=== PATIENT | male | born 1985 | race Caucasian/White ===

== ENCOUNTER 2021-03-01 22:01 | Inpatient (IN) | payer SELFPAY ==
[2021-03-01] MEDS ORDERED: ONDANSETRON 4 MG/2 ML VIAL ONE (22:31)
[2021-03-01] MEDS ORDERED: NA CHLORIDE 0.9% 1,000 ML ONE (22:55)
[2021-03-01] MEDS ORDERED: LORazepam 2 MG/ML VIAL ONE (22:56)
[2021-03-01 23:20] LABS: Absolute Lymphocytes (CBC) 0.1 K/uL (0.7-4.9); Basophils % 0.2 % (0-1.3); Hematocrit 43.1 % (39.6-49.0); Lymphocytes % 1.8 % (15.3-44.8); MPV 7.3 fL (7.6-11.3); RBC Red Blood Cell Count 4.35 M/uL (4.33-5.43)
[2021-03-01 23:21] LABS: Protime INR 1.11
[2021-03-01 23:28] LABS: ALT/SGPT 103 U/L (12-78); Albumin 4.1 g/dL (3.4-5.0); Alkaline Phosphatase 244 U/L (45-117); BUN Blood Urea Nitrogen 5 mg/dL (7-18); Bicarbonate 25 mmol/L (21-32); Bilirubin Direct 4.4 mg/dL (0-0.2); Creatine Phosphokinase 87 U/L (39-308); Glucose Level 171 mg/dL (74-106); Lipase 144 U/L (73-393); Potassium 3.8 mmol/L (3.5-5.1); Protein, Total 8.2 g/dL (6.4-8.2); Sodium Level 137 mmol/L (136-145); Troponin (Emerg Dept Use Only) < 0.02 ng/mL (0.0-0.045)
[2021-03-01 23:31] LABS: AST/SGOT 462 U/L (15-37); Bilirubin Total 6.4 mg/dL (0.2-1.0)
[2021-03-02 00:20] LABS: Urine Blood Negative (Negative); Urine Glucose Negative (Negative); Urine Protein 2+ (Negative); Urine Specific Gravity 1.025 (1.005-1.030)
[2021-03-02 00:48] LABS: Barbiturates NEGATIVE (NEGATIVE); Benzodiazepines POSITIVE (NEGATIVE); Cocaine NEGATIVE (NEGATIVE); METHAMPHETAM NEGATIVE (NEGATIVE); Methadone NEGATIVE (NEGATIVE); Opiates NEGATIVE (NEGATIVE); Phencyclidine NEGATIVE (NEGATIVE); THC Cannibis NEGATIVE (NEGATIVE)
--- NOTE | 2021-03-02 00:51 | EDPHYS ---
Physician Documentation [facility] Name: Jonathan Vick Age: 35 yrs Sex: Male : 1985 Arrival Date: 03/01/2021 Time: 22:03 Bed 28 Private MD: ED Physician Sesar Manzano HPI: 03/01 22:34 This 35 yrs old Male presents to ER via EMS with complaints of Seizure. mh7 22:34 The patient presents after having a single isolated seizure, that lasted 4 minute(s). mh7 Character of seizure(s): Loss of consciousness: it is not known if the patient experienced loss of consciousness, Motor activity: the motor activity is unknown, Incontinence: none, Apnea: the patient did not experience apnea, Circulation: the patient did not experience evidence of pulse disturbance, Eye movements: are unknown. Seizure onset: just prior to arrival, today. Context: the seizure(s) was witnessed, by family, , occurred at home, occurred while the patient was sitting, Contributing factors: recent alcohol abuse. Seizure Hx: the patient has no previous seizure history. Associated injury: The patient did not suffer any apparent associated injury. Current symptoms: Nausea, feels shaky. Historical: - Allergies: 22:00 Sulfa (Sulfonamide Antibiotics); cc4 - Immunization history:: Unknown. - Social history:: Patient/guardian denies using street drugs, IV drugs, tobacco products, Reports drinking alcohol since the age of 16; reports boing to "rehab" x 2 for alcohol use.. - Code Status:: Full code. ROS: 22:34 Constitutional: Negative for fever, chills, and weight loss, Eyes: Negative for injury, mh7 pain, redness, and discharge, ENT: Negative for injury, pain, and discharge, Neck: Negative for injury, pain, and swelling, Cardiovascular: Negative for chest pain, palpitations, and edema, Respiratory: Negative for shortness of breath, cough, wheezing, and pleuritic chest pain. 22:34 Back: Negative for injury and pain, : Negative for injury, bleeding, discharge, and swelling, MS/Extremity: Negative for injury and deformity, Skin: Negative for injury, rash, and discoloration. 22:34 Psych: Negative for depression, anxiety, suicide ideation, homicidal ideation, and hallucinations, Allergy/Immunology: Negative for hives, rash, and allergies, Endocrine: Negative for neck swelling, polydipsia, polyuria, polyphagia, and marked weight changes, Hematologic/Lymphatic: Negative for swollen nodes, abnormal bleeding, and unusual bruising. 22:34 Abdomen/GI: Negative for abdominal pain, diarrhea, constipation, abdominal cramps, abdominal distension, anorexia, dysphagia, hematemesis, black/tarry stool, rectal pain, rectal bleeding, bowel incontinence, flatulence. 22:34 Neuro: Negative for dizziness, gait disturbance, headache, hearing loss, loss of consciousness, numbness, speech changes, syncope, near syncope, tingling, tinnitus, tremor, visual changes, weakness. Exam: 22:34 ENT: Nares patent. No nasal discharge, no septal abnormalities noted. Tympanic mh7 membranes are normal and external auditory canals are clear. Oropharynx with no redness, swelling, or masses, exudates, or evidence of obstruction, uvula midline. Mucous membranes moist. Neck: Trachea midline, no thyromegaly or masses palpated, and no cervical lymphadenopathy. Supple, full range of motion without nuchal rigidity, or vertebral point tenderness. No Meningismus. Chest/axilla: Normal chest wall appearance and motion. Nontender with no deformity. No lesions are appreciated. Cardiovascular: Regular rate and rhythm with a normal S1 and S2. No gallops, murmurs, or rubs. Normal PMI, no JVD. No pulse deficits. Respiratory: Lungs have equal breath sounds bilaterally, clear to auscultation and percussion. No rales, rhonchi or wheezes noted. No increased work of breathing, no retractions or nasal flaring. Abdomen/GI: Soft, non-tender, with normal bowel sounds. No distension or tympany. No guarding or rebound. No evidence of tenderness throughout. Back: No spinal tenderness. No costovertebral tenderness. Full range of motion. Skin: Warm, dry with normal turgor. Normal color with no rashes, no lesions, and no evidence of cellulitis. MS/ Extremity: Pulses equal, no cyanosis. Neurovascular intact. Full, normal range of motion. Psych: Awake, alert, with orientation to person, place and time. Behavior, mood, and affect are within normal limits. 22:34 Constitutional: The patient appears in no acute distress, alert, awake, uncomfortable. 22:34 Head/face: Noted is abrasion(s), that are moderate, of the Right facial, contusion, that is superficial, of the Right face, ecchymosis, that is mild, of the right eye, swelling, that is mild, of the right eye. 22:34 Eyes: Periorbital structures: contusion, that is mild, on the right eye, ecchymosis, mh7 that is mild, on the right eye, Pupils: equal, round, and reactive to light and accomodation, Extraocular movements: intact throughout, Conjunctiva: injected, bilaterally, Corneas: are normal, Sclera: no appreciated abnormality, funduscopic exam reveals no obvious abnormalities, Nystagmus: is not appreciated. 22:34 Neuro: Orientation: to person, place, situation, Mentation: is normal, Memory: is mh7 normal, Cranial nerves: grossly normal, Cerebellar function: is grossly normal, Motor: is normal, Sensation: is normal, Gait: not tested. seizure activity, is not displayed by the patient, Abnormal movements: there are no abnormal movements. Vital Signs: 22:00 BP 155 / 116; Pulse 93; Resp 24; Temp 98.2; Pulse Ox 100% on R/A; cc4 23:00 BP 148 / 102; Pulse 84; Resp 18; Pulse Ox 99% on R/A; cc4 23:00 BP 138 / 107; Pulse 81; Resp 16; Pulse Ox 100% on R/A; cc4 23:15 BP 139 / 102; Pulse 90; Resp 16; Pulse Ox 96% on R/A; cc4 03/02 00:05 BP 126 / 97; Pulse 88; Resp 18; Pulse Ox 99% on R/A; cc4 00:30 BP 133 / 96; Pulse 92; Resp 16; Pulse Ox 99% on R/A; cc4 01:00 BP 133 / 94; Pulse 99; Resp 16; Pulse Ox 98% ; cc4 01:30 BP 130 / 96; Pulse 96; Resp 16; Pulse Ox 96% on R/A; cc4 02:00 BP 135 / 93; Pulse 103; Resp 16; Pulse Ox 98% on R/A; cc4 02:15 BP 132 / 95; Pulse 100; Resp 16; Temp 100.3(O); Pulse Ox 96% on R/A; cc4 MDM: 00:48 Differential diagnosis: drug overdose, cardiac arrhythmia, seizure, TIA, Alcohol [facility] withdrawal. Data reviewed: vital signs, nurses notes, EMS record, lab test result(s), CBC, electrolytes, urinalysis, EKG, radiologic studies, CT scan, plain films. Data interpreted: Pulse oximetry: on room air is 100 %. Interpretation: normal. Counseling: I had a detailed discussion with the patient and/or guardian regarding: the historical points, exam findings, and any diagnostic results supporting the discharge/admit diagnosis, the presence of at least one elevated blood pressure reading (>120/80) during this emergency department visit, lab results, radiology results, the need for further work-up and treatment in the hospital. Response to treatment: the patient's symptoms have markedly improved after treatment. 00:50 Patient medically screened. [facility] 03/01 22:26 Order name: Acetaminophen [facility] 03/01 22:26 Order name: Basic Metabolic Panel [facility] 03/01 22:26 Order name: CBC with Diff; Complete Time: 23:26 [facility] 03/01 22:26 Order name: ETOH Level; Complete Time: 23:36 [facility] 03/01 22:26 Order name: Hepatic Function; Complete Time: 23:36 [facility] 03/01 22:26 Order name: PT-INR; Complete Time: 23:36 [facility] 03/01 22:26 Order name: Ptt, Activated; Complete Time: 23:36 [facility] 03/01 22:26 Order name: Salicylate; Complete Time: 23:36 [facility] 03/01 22:26 Order name: Urine Drug Screen; Complete Time: 01:52 [facility] 03/01 22:26 Order name: Troponin (emerg Dept Use Only); Complete Time: 23:36 [facility] 03/01 22:26 Order name: CPK; Complete Time: 23:36 [facility] 03/01 22:27 Order name: Lipase; Complete Time: 23:36 [facility] 03/01 22:27 Order name: Acetaminophen Level; Complete Time: 23:36 [facility] 03/01 22:27 Order name: Basic Metabolic Panel; Complete Time: 23:36 [facility] 03/01 22:26 Order name: CT Head C Spine [facility] 03/01 22:26 Order name: CT Facial Bones W/O Con [facility] 03/01 22:30 Order name: COVID-19 : Document "Date of Symptom Onset" if Symptomatic. [facility] 03/02 00:20 Order name: Urine Dipstick-Ancillary; Complete Time: 01:52 [facility] 03/02 01:24 Order name: SARS-COV-2 RT PCR; Complete Time: 01:52 [facility] 03/02 05:10 Order name: Phosphorus [facility] 03/02 05:10 Order name: Lipid Profile [facility] 03/02 05:10 Order name: T4 Free [facility] 03/02 05:10 Order name: Magnesium [facility] 03/02 05:10 Order name: Thyroid Stimulating Hormone [facility] 03/03 05:16 Order name: Protime (+INR) [facility] 03/03 05:16 Order name: CBC with Automated Diff [facility] 03/03 05:39 Order name: Comprehensive Metabolic Panel [facility] 03/03 05:39 Order name: Phosphorus [facility] 03/03 05:39 Order name: Magnesium [facility] 03/01 22:26 Order name: EKG; Complete Time: 22:27 [facility] 03/01 22:26 Order name: EKG - Nurse/Tech; Complete Time: 22:56 [facility] 03/01 22:26 Order name: IV Saline Lock; Complete Time: 23:40 [facility] 03/01 22:26 Order name: Labs collected and sent; Complete Time: 23:40 [facility] 03/01 22:26 Order name: Suicide Screening ([place]) [facility] 03/01 22:26 Order name: Urine Dipstick-Ancillary (obtain specimen); Complete Time: 00:22 [facility] 03/01 22:26 Order name: Chest Single View XRAY [facility] 03/01 23:37 Order name: CT Abd/Pelvis - IV Contrast Only [facility] 03/02 01:45 Order name: Misc. Order: banana bag rate at 150cc/hr; Complete Time: 02:24 [facility] 03/02 08:27 Order name: US EDMS Administered Medications: 03/01 22:10 Drug: Zofran (Ondansetron) 4 mg Route: IVP; Site: right antecubital; cc4 03/02 01:53 Follow up: Urine output 2330 ml; Response: No adverse reaction; Marked relief of cc4 symptoms 03/01 22:51 Drug: NS 0.9% 1000 ml Route: IV; Rate: 1000 ml; Site: right antecubital; cc4 22:51 Drug: Ativan (LORazepam) 2 mg Route: IVP; Site: right antecubital; cc4 23:30 Follow up: Response: No adverse reaction; Marked relief of symptoms 4 03/02 01:40 Drug: Ativan (LORazepam) 2 mg Route: IVP; Site: right antecubital; cc4 02:23 Drug: Librium - chlordiazePOXIDE 50 mg Route: PO; cc4 02:23 Drug: Banana Bag - (NS 0.9% 1000 ml, foLIC Acid 1 mg, Thiamine 100 mg, Multivitamin 1 cc4 amp) Route: IV; Rate: calculated rate; Site: right antecubital; Disposition Summary: 03/02/21 00:50 Hospitalization Ordered Hospitalization Status: Inpatient Admission [facility] Provider: Gerson Schneider Dee Condition: Stable [facility] Problem: new [facility] Symptoms: have improved 7 Bed/Room Type: Standard [facility] Location: [facility] ER HOLD(03/02/21 16:06) aa5 Room Assignment: ERHOLD-(03/02/21 16:06) aa5 Diagnosis - Alcohol dependence with withdrawal [facility] Forms: - Medication Reconciliation Form 7 - SBAR form 7 Signatures: Dispatcher [employer] EDGA Alison Hartley RN RN aa5 Drew Stanton, HIDE SALTER-C HIDE SALTER-Cla1 Sesar Manzano MD MD 7 Phuong Smith RN RN cc4 Corrections: (The following items were deleted from the chart) 00:33 03/01 22:30 CORONAVIRUS ordered. [facility] SATHYAGA 03/02 00:59 00:50 Telemetry/MedSurg (Inpatient) 7 7 00:59 00:50 7 7 16:06 00:59 Intensive Care Unit 7 aa5 16:06 00:59 [facility] aa5
--- NOTE | 2021-03-02 00:51 | ER ---
Nurse's Notes [facility] Name: Jonathan Vick Age: 35 yrs Sex: Male : 1985 Arrival Date: 03/01/2021 Time: 22:03 Bed 28 Private MD: Diagnosis: Alcohol dependence with withdrawal Presentation: 03/01 22:18 Chief complaint: EMS states: [employer] reports stated that pt had a seizure cc4 lasting 4 minutes from alcohol withdrawal; reports pt drinks a liter of Barcardia per day and has had only a pint today; large hematoma/ecchymosis and scabbed abrasion noted right forehead/ right lateral orbit of eye/eyelids of right eye with redness noted right sclera;. Onset of symptoms was March 01, 2021 at 21:15. 22:18 Method Of Arrival: EMS: [facility] cc4 22:18 Acuity: LUPIS 2 cc4 Triage Assessment: 22:00 General: Appears unkempt, Trembling intermittently; awake \\T\\ oriented to person; reports cc4 taking nap prior to arrival; no knowledge of seizure activity; large area of ecchymosis, edema \\T\\ scabbed abrasion noted right lateral forehead \\T\\ orbit of right eye \\T\\ eyelids; redness noted of sclera right eye; reports falling yesterday striking face \\T\\ reports not seeking medical attention yesterday after fall; reports trying to decrease alcohol intake; states, "I have a baby under the age of one and another on the way", "I want to decrease my drinking"; "I have been to rehab twice"; denies any suicidal ideations.. Behavior is flat, Smells of alcohol, Reports "I usually drink 1 liter of Bacardi rum a day", "I've only had about a pint today". Neuro: Level of Consciousness is awake, Oriented to person, Hosiery Mater are equal bilaterally Moves all extremities. Speech is normal, Pupils are PERRLA, Pupil Size: 4mm Seizure activity reported prior to arrival. Type of seizure: tonic-clonic seizure. Seizure lasted approximately 4 minutes. Historical: - Allergies: 22:00 Sulfa (Sulfonamide Antibiotics); cc4 - Immunization history:: Unknown. - Social history:: Patient/guardian denies using street drugs, IV drugs, tobacco products, Reports drinking alcohol since the age of 16; reports boing to "rehab" x 2 for alcohol use.. - Code Status:: Full code. Screenin:00 Abuse screen: Denies threats or abuse. Nutritional screening: No deficits noted. cc4 Tuberculosis screening: No symptoms or risk factors identified. Fall Risk Fall in past 12 months (25 points). Assessment: 22:00 General: Appears unkempt, See triage note.. cc4 03/02 00:00 Reassessment: Patient appears in no apparent distress at this time. Returned from CT cc4 via stretcher; awake/oriented to person; states, "I'm in the hospital"; no trembling noted; no seizure activity noted; states, "I need to sleep now".. 02:15 Reassessment: CHANO Stanton notified of elevated temp to 100.3 F orally with orders cc4 received to give Librium 50 mg po \\T\\ ativan 2mg ivp every 2 hours; CHANO Stanton reports "everything will increase". Vital Signs: 03/01 22:00 BP 155 / 116; Pulse 93; Resp 24; Temp 98.2; Pulse Ox 100% on R/A; cc4 23:00 BP 148 / 102; Pulse 84; Resp 18; Pulse Ox 99% on R/A; cc4 23:00 BP 138 / 107; Pulse 81; Resp 16; Pulse Ox 100% on R/A; cc4 23:15 BP 139 / 102; Pulse 90; Resp 16; Pulse Ox 96% on R/A; cc4 03/02 00:05 BP 126 / 97; Pulse 88; Resp 18; Pulse Ox 99% on R/A; cc4 00:30 BP 133 / 96; Pulse 92; Resp 16; Pulse Ox 99% on R/A; cc4 01:00 BP 133 / 94; Pulse 99; Resp 16; Pulse Ox 98% ; cc4 01:30 BP 130 / 96; Pulse 96; Resp 16; Pulse Ox 96% on R/A; cc4 02:00 BP 135 / 93; Pulse 103; Resp 16; Pulse Ox 98% on R/A; cc4 02:15 BP 132 / 95; Pulse 100; Resp 16; Temp 100.3(O); Pulse Ox 96% on R/A; cc4 ED Course: 03/01 22:03 Patient arrived in ED. tt3 22:16 hPuong Smith, SENDY is Primary Nurse. cc4 22:19 Sesar Manzano MD is Attending Physician. mh7 22:26 Triage completed. cc4 22:56 Chest Single View XRAY In Process Unspecified. EDMS 23:39 CT Abd/Pelvis - IV Contrast Only Sent. cc4 23:39 Acetaminophen Sent. cc4 23:40 Basic Metabolic Panel Sent. cc4 23:54 CT Head C Spine In Process Unspecified. EDMS 23:54 CT Facial Bones W/O Con In Process Unspecified. EDMS 10 00:06 CT Abd/Pelvis - IV Contrast Only In Process Unspecified. EDMS 00:14 COVID-19 : Document "Date of Symptom Onset" if Symptomatic. Sent. cc4 00:50 Gerson Schneider DO is Hospitalizing Provider. 7 Administered Medications: 03/01 22:10 Drug: Zofran (Ondansetron) 4 mg Route: IVP; Site: right antecubital; cc4 03/02 01:53 Follow up: Urine output 2330 ml; Response: No adverse reaction; Marked relief of cc4 symptoms 03/01 22:51 Drug: NS 0.9% 1000 ml Route: IV; Rate: 1000 ml; Site: right antecubital; cc4 22:51 Drug: Ativan (LORazepam) 2 mg Route: IVP; Site: right antecubital; cc4 23:30 Follow up: Response: No adverse reaction; Marked relief of symptoms cc4 03/02 01:40 Drug: Ativan (LORazepam) 2 mg Route: IVP; Site: right antecubital; cc4 02:23 Drug: Librium - chlordiazePOXIDE 50 mg Route: PO; cc4 02:23 Drug: Banana Bag - (NS 0.9% 1000 ml, foLIC Acid 1 mg, Thiamine 100 mg, Multivitamin 1 cc4 amp) Route: IV; Rate: calculated rate; Site: right antecubital; Output: 01:53 Urine: 2330ml; Total: 2330ml. cc4 Outcome: 00:50 Decision to Hospitalize by Provider. 7 03/03 10:42 Patient left the ED. iw Signatures: Dispatcher [employer] EDMS Amanda Toney RN Sesar Luke MD MD mh7 Gulshan Hopper tt3 Phuong Smith RN RN cc4 Corrections: (The following items were deleted from the chart) 03/02 00:33 00:22 CORONAVIRUS drawn and sent. cc4 EDMS 03:50 03:00 BP 135 / 93; Pulse 103bpm; Resp 18bpm; Pulse Ox 98% RA; cc4 cc4
[2021-03-02] MEDS ORDERED: LORazepam 2 MG/ML VIAL ONE ×6 (02:04→20:31)
[2021-03-02] MEDS ORDERED: LORazepam 2 MG/ML VIAL IV PRN ×2 (02:09→08:09)
[2021-03-02] MEDS ORDERED: ONDANSETRON 4 MG/2 ML VIAL IV PRN (02:09)
[2021-03-02] MEDS ORDERED: chlordiazePOXIDE HCl 25 MG CAP ONE ×5 (02:38→23:53)
[2021-03-02] MEDS ORDERED: THIAMINE 200 MG/2 ML INJ ONE (02:38)
[2021-03-02] MEDS ORDERED: MULTIVITAMINS 10 ML VIAL (INJ) IV ONE (02:39)
[2021-03-02] MEDS ORDERED: FOLIC ACID 5 MG/ML VIAL ONE (02:40)
[2021-03-02] MEDS ORDERED: NA CHLORIDE 0.9% 1,000 ML ONE ×3 (02:41→17:36)
--- NOTE | 2021-03-02 02:45 | P.HP ---
Certification for Inpatient Patient admitted to: Inpatient With expected LOS: >2 Midnights Patient will require the following post-hospital care: None Practitioner: I am a practitioner with admitting privileges, knowledge of patient current condition, hospital course, and medical plan of care. Services: Services provided to patient in accordance with Admission requirements found in Title 42 Section 412.3 of the Code of Federal Regulations Patient History Date of Service: 03/02/21 Primary Care Provider: None Reason for admission: Alcohol withdrawal, seizure History of Present Illness: 35-year-old male with history of alcohol abuse/fatty liver presents emergency department for possible seizure. Patient reports that he drinks approximately 1 L of Bacardi rum per day but has cut down to about half a liter over the course of the last 2 days. Patient reports that he was in his recliner at home alone and awoke with blood coming out of his mouth after biting his tongue apparently. Patient reports he has had seizure in the past with alcohol withdrawal as well as multiple hospitalizations for similar. Patient was evaluated in the emergency department noted to be tachycardic, hypertensive, tremulous and developed low-grade temperature while in the emergency department. Patient reports last drink was around 1700 on 03/01/2021. Patient was evaluated in the emergency department labs are significant for chloride 95 creatinine 1.40 GFR 58 glucose 170 1T bili 6.4D bili 4.4 AST 462 ALT 103 alk phos 244 alcohol level less than 10 Covid negative patient with fall on 02/28/2021 resulting in facial trauma, patient had CT scan head/neck/facial bones which was negative for acute findings. Patient does have conjunctivitis of the right eye as well. ED provider wishes to admit for further evaluation and management of seizure, alcohol withdraw. Allergies Sulfa (Sulfonamide Antibiotics) Allergy (Verified 03/02/21 02:09) Hives/Rash - Past Medical/Surgical History -: Alcohol abuse -: Appendectomy -: Back surgery Psychosocial/ Personal History: Patient currently unemployed, lives at home with his fiance and child - Family History Father Notes: Alcoholic - Social History Smoking Status: Never smoker Alcohol use: Yes CD- Drugs: No Caffeine use: Yes Place of Residence: Home Review of Systems 10-point ROS is otherwise unremarkable General: Malaise, Other (Tremulous) Gastrointestinal: Nausea Physical Examination - Physical Exam General: Alert, In no apparent distress, Oriented x3 HEENT: PERRLA, Mucous membr. moist/pink, Other (Bruising, swelling to right side of face, conjunctivitis of the right eye with purulence), EOMI, Sclerae nonicteric Neck: Supple, 2+ carotid pulse no bruit, No LAD, Without JVD or thyroid abnormality Respiratory: Clear to auscultation bilaterally, Normal air movement Cardiovascular: Regular rate/rhythm, Normal S1 S2 Gastrointestinal: Normal bowel sounds, No tenderness Musculoskeletal: No tenderness Integumentary: No rashes Neurological: Normal gait, Normal speech, Normal strength at 5/5 x4 extr, Normal tone, Normal affect Lymphatics: No axilla or inguinal lymphadenopathy - Studies Laboratory Data (last 24 hrs) 03/01/21 22:48: PT 12.8 H, INR 1.11, APTT 27.5 03/01/21 22:48: WBC 7.20, Hgb 15.0, Hct 43.1, Plt Count 168 03/01/21 22:48: Sodium 137, Potassium 3.8, BUN 5 L, Creatinine 1.40 H, Glucose 171 H, Total Bilirubin 6.4 H*, AST 462 H*, ALT 103 H, Alkaline Phosphatase 244 H, Lipase 144 Assessment and Plan - Plan Assessment: Suspected seizure secondary to alcohol withdrawal Acute liver injury DANIEL Plan: Suspected seizure secondary to alcohol withdrawal: Seizure precautions, patient with hypertension, mild tachycardia, low-grade fever patient reports drinking approximately 1 L of rum daily, recently decreased to 0.5 L daily last drink was 03/01/2021 at around 1700. Alcohol level less than 10 on admission. Patient with mild tremors, reports he has had hallucinations and withdrawals in the past and has required hospitalization for multiple days. Continue with scheduled Librium, as needed Ativan, alcohol withdrawal assessments. Will monitor closely in ICU for signs of DT. Acute liver injury: Educated patient on need for alcohol cessation, patient plans on cessation after withdrawal. CT abdomen pelvis demonstrates fatty liver without other acute findings. DANIEL: Continue IV fluids/banana bag check with daily labs. DVT PPX: Lovenox Code status: Full code Discharge Plan: Home Plan to discharge in: Greater than 2 days - Advance Directives Does patient have a Living Will: No Does patient have a Durable POA for Healthcare: No - Code Status/Comfort Care Code Status Assessed: Yes (Full code) Critical Care: No Time Spent Managing Pts Care (In Minutes): 55
[2021-03-02] MEDS: LORazepam 2 MG/ML VIAL IV PRN ×5 (04:20→21:00)
[2021-03-02 05:10] LABS: Magnesium 1.6 mg/dL (1.8-2.4); Phosphorus 2.8 mg/dL (2.5-4.9); Thyroid Stimulating Hormone 1.76 uIU/mL (0.360-3.740)
[2021-03-02 05:47] VITALS: BMI 25.7
[2021-03-02] MEDS ORDERED: chlordiazePOXIDE HCl 25 MG CAP PO SCH (06:00)
--- NOTE | 2021-03-02 06:26 | P.PN ---
Subjective Date of Service: 03/02/21 Primary Care Provider: None Chief Complaint: Alcohol withdrawal, seizure Subjective: Other (Patient resting in bed. Patient given Ativan last night. Patient does not appear agitated. Patient admits significant alcohol use) Physical Examination - Vital Signs Temperature: 97.9 F Blood Pressure: 134/96 Pulse: 81 Respirations: 18 Pulse Ox (%): 100 - Studies Laboratory Data (last 24 hrs) 03/01/21 22:48: PT 12.8 H, INR 1.11, APTT 27.5 03/01/21 22:48: WBC 7.20, Hgb 15.0, Hct 43.1, Plt Count 168 03/01/21 22:48: Sodium 137, Potassium 3.8, BUN 5 L, Creatinine 1.40 H, Glucose 171 H, Total Bilirubin 6.4 H*, AST 462 H*, ALT 103 H, Alkaline Phosphatase 244 H, Lipase 144 Assessment & Plan Discharge Plan: Home Plan to discharge in: Greater than 2 days Physician Review Additional Text: COVID: negative CT Head/neck: No acute abnormality CT Ab/pelvis: Fatty liver Liver ultrasound: Results pending Physical exam: General: Alert, In no apparent distress, Oriented x3 HEENT: PERRLA, Mucous membr. moist/pink, Other (Bruising, swelling to right side of face, conjunctivitis of the right eye with purulence), EOMI, Sclerae nonicteric Neck: Supple, 2+ carotid pulse no bruit, No LAD, Without JVD or thyroid abnormality Respiratory: Clear to auscultation bilaterally, Normal air movement Cardiovascular: Regular rate/rhythm, Normal S1 S2 Gastrointestinal: Normal bowel sounds, No tenderness Musculoskeletal: No tenderness Integumentary: No rashes Neurological: Normal gait, Normal speech, Normal strength at 5/5 x4 extr, Normal tone, Normal affect Lymphatics: No axilla or inguinal lymphadenopathy Impression: Seizure likely secondary to alcohol withdrawal with severe alcohol abuse Elevated liver function with hyperbilirubinemia secondary to alcohol abuse and fatty liver Acute renal injury likely dehydration related to alcohol abuse GERD Fall with ecchymosis to the right side of the face Conjunctivitis Alcohol abuse Plan: Seizure likely secondary to alcohol withdrawal with severe alcohol abuse: Patient stable at this time. Continue with IV fluids, IV banana bag. Fall and seizure precaution in place. Continue with Librium 25 mg every 6 hours. Hold if with increase sedation. Will provide IV Ativan as needed for agitation. Physical therapy to assess ambulation. Continue to monitor the patient for DTs. Anticipate continued improvement. Will monitor closely. DVT prophylaxis in place. Alcohol cessation addressed in detail. Patient plans to quit. Elevated liver function with hyperbilirubinemia secondary to alcohol abuse and fatty liver: Continue to monitor electrolytes. Will obtain liver ultrasound. CT scan reported fatty liver. Will obtain hepatitis panel and HIV panel. Acute renal injury likely dehydration related to alcohol abuse: Continue IV fluids. Encourage oral intake. Will monitor closely. GERD: We'll start Pepcid. Fall with ecchymosis to the right side of the face: Physical therapy to assess ambulation. Will monitor closely. Will provide medication for pain as needed. Conjunctivitis: Continue with eyedrops. Alcohol abuse: Continue with alcohol cessation. Patient plans to quit. Patient will likely require Librium taper at discharge. DVT PPX: Lovenox Code status: Full code Discharge Plan: Home at discharge Time Spent Managing Pts Care (In Minutes): 55
[2021-03-02] MEDS ORDERED: KCL 20 MEQ/100 mL IVPB 20 MEQ/100 ML BAG IV SCH (06:30)
[2021-03-02] MEDS ORDERED: KCL 20 MEQ/100 mL IVPB 20 MEQ/100 ML BAG IV ONE (07:04)
--- NOTE | 2021-03-02 07:20 | RAD REPORT ---
EXAM DESCRIPTION: RAD - Chest Single View - 03/01/2021 10:56 pm CLINICAL HISTORY: Hypertensive COMPARISON: Abdomen Pelvis W Contrast dated 03/01/2021 FINDINGS: Lines: None. Lungs: No evidence of edema or pneumonia. Pleural: No significant pleural effusions or pneumothorax. Cardiac: The heart size is within normal limits. Bones: No acute fractures. Other: IMPRESSION: No acute cardiopulmonary disease.
[2021-03-02] MEDS ORDERED: MAGNESIUM SULFATE 1 gm IVPB 1 GM/100 ML BAG IV ONE (08:03)
--- NOTE | 2021-03-02 08:26 | RAD REPORT ---
EXAM DESCRIPTION: US - Abdomen Exam Limited - 03/02/2021 6:45 am CLINICAL HISTORY: Elev. LFT/Bili COMPARISON: Abdomen Pelvis W Contrast dated 03/01/2021 FINDINGS: The liver demonstrates diffuse fatty infiltration.No focal liver lesion or intrahepatic bi liary dilatation.No evidence of portal vein thrombosis. No biliary ductal dilatation. There is sludge within the gallbladder. No gallbladder wall thickening. No pericholecystic fluid. Visualized portions of the pancreas unremarkable. The common bile duct sarah sures 4 millimeters. IMPRESSION: Hepatic steatosis. Negative for cholelithiasis, acute cholecystitis, or biliary ductal d ilatation.
[2021-03-02] MEDS: NA CHLORIDE 0.9% 1,000 ML IV SCH ×2 (08:29→17:08)
[2021-03-02] MEDS ORDERED: FOLIC ACID 1 MG, MULTIVITAMINS INJ 10 ML, THIAMINE HCL 100 MG in NA CHLORIDE 0.9% 1,000 ML IV SCH (09:00)
[2021-03-02] MEDS: FAMOTIDINE 20 MG TAB PO SCH ×2 (09:30→20:00)
[2021-03-02] MEDS: ENOXAPARIN 40 MG/0.4 ML SQ SCH (09:31)
[2021-03-02] MEDS ORDERED: ENOXAPARIN 40 MG/0.4 ML SQ ONE (09:52)
[2021-03-02] MEDS ORDERED: FAMOTIDINE 20 MG/2 ML VIAL IV ONE (09:52)
--- NOTE | 2021-03-02 11:13 | EKG ---
Test Date: 2021-03-01 Test Time: 22:42:14 Plant Nursery Worker: ENIO MEASUREMENT RESULTS: Intervals: Rate: 81 IA: 160 QRSD: 84 QT: 404 QTc: 469 Arvilla: P: 55 IA: 160 QRS: 34 T: 43 INTERPRETIVE STATEMENTS: Normal sinus rhythm Normal ECG No previous ECG available for comparison Electronically Signed On 03-02-21 11:13:00 CDT by Gregory Ko
[2021-03-02] MEDS: chlordiazePOXIDE HCl 25 MG CAP PO SCH ×3 (11:35→23:35)
[2021-03-02] MEDS: MOXIFLOXACIN HCL 0.5% 3ML OPTH OPTH SCH ×2 (13:50→20:00)
[2021-03-02] MEDS ORDERED: FAMOTIDINE 20 MG TAB ONE (20:10)
[2021-03-02 20:16] VITALS: O2SAT 100
--- NOTE | 2021-03-02 21:02 | RAD REPORT ---
EXAM DESCRIPTION: CT - Head C Spine Mpr Wo Con - 03/02/2021 4:10 am CLINICAL HISTORY: The patient is 35 years old and is Male; Trauma pain TECHNIQUE: Axial computed tomography images of the head/brain and cervical spine without intravenous contrast. Sagittal and coronal reformatted images were created and reviewed. This CT exam was pe rformed using one or more of the following dose reduction techniques: automated exposure control, a djustment of the mA and/or kV according to patient size, and/or use of iterative reconstruction techn ique. COMPARISON: No relevant prior studies available. FINDINGS: BRAIN: Unremarkable. No hemorrhage. No significant white matter disease. No edema. VENTRICLES: Unremarkable. No ventriculomegaly. SKULL: No acute fracture. SINUSES: Unremarkable as visualized. No acute sinusitis. MASTOID AIR CELLS: Unremarkable as visualized. No mastoid effusion. VERTEBRAE: The vertebral body heights and alignment are maintained. No acute fracture. DISCS/SPINAL CANAL/NEURAL FORAMINA: The intervertebral disc spaces are maintained. No spinal tian l stenosis. SOFT TISSUES: Right periorbital soft tissue swelling is present. LUNG APICES: Unremarkable as visualized. IMPRESSION: 1. No acute intracranial findings. 2. No fracture or malalignment of the cervical spine. Electronically signed by: Anisa Simon MD 03/02/2021 12:08 AM CDT Due to temporary technical issues with the PACS/Fluency reporting system, reports are being signed by the in house radiologists without review as a courtesy to insure prompt reporting. The interpreting radiologist is fully responsible for the content of the report.
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
--- NOTE | 2021-03-02 22:11 | RAD REPORT ---
EXAM DESCRIPTION: CT - Abdomen Pelvis W Contrast - 03/02/2021 4:12 am CLINICAL HISTORY: The patient is 35 years old and is Male; NAUSEA / VOMITING TECHNIQUE: Axial computed tomography images of the abdomen and pelvis with intravenous contrast. S agittal and coronal reformatted images were created and reviewed. This CT exam was performed using one or more of the following dose reduction techniques: automated exposure control, adjustment of t he mA and/or kV according to patient size, and/or use of iterative reconstruction technique. COMPARISON: No relevant prior studies available. FINDINGS: LUNG BASES: Unremarkable. No mass. No consolidation. ABDOMEN: LIVER: The liver is enlarged and diffusely fatty. GALLBLADDER AND BILE DUCTS: The gallbladder is physiologically distended. PANCREAS: No ductal dilation. No mass. SPLEEN: Unremarkable. ADRENALS: Unremarkable. No mass. KIDNEYS AND URETERS: Unremarkable. The kidneys enhance symmetrically. No obstructing renal or ure teral calculus is seen. No hydronephrosis or hydroureter. No perinephric fluid or stranding. STOMACH AND BOWEL: Stomach is filled with fluid and air. The small bowel is normal in caliber. Mi nimal stool is present throughout colon. There is no mucosal thickening or evidence of bowel obstruct ion. PELVIS: APPENDIX: The appendix is surgically absent. BLADDER: The bladder is moderately distended. REPRODUCTIVE: Unremarkable as visualized. ABDOMEN and PELVIS: INTRAPERITONEAL SPACE: Unremarkable. No free air. No significant fluid collection. BONES/JOINTS: Several healed left anterior rib fractures are present. There is no acute fracture visualized axial and appendicular skeleton. Schmorl's nodes at the superior endplate of T6-T9 are pre sent. Height loss at these levels is noted. Postsurgical change with spinal rods and pedicle screws f rom T11 through L3 is present bridging a chronic fracture of L1. Retropulsion with height loss at L1 is noted along with canal narrowing. SOFT TISSUES: The soft tissues are normal. VASCULATURE: Several calcified phleboliths are present within the pelvis. No abdominal aortic a neurysm. LYMPH NODES: Unremarkable. No enlarged lymph nodes. OTHER FINDINGS: Surgical clips are present within the right lower quadrant. IMPRESSION: 1. No acute findings on this contrasted CT of the abdomen and pelvis to explain the pa tient's symptoms. 2. Chronic findings specifically of the vertebral bodies as described. Correlation with prior imagi ng is recommended. Electronically signed by: Anisa Simon MD 03/02/2021 12:15 AM CDT Due to temporary technical issues with the PACS/Fluency reporting system, reports are being signed by the in house radiologists without review as a courtesy to insure prompt reporting. The interpreting radiologist is fully responsible for the content of the report.
[2021-03-03] MEDS: NA CHLORIDE 0.9% 1,000 ML IV SCH (01:07)
[2021-03-03] MEDS ORDERED: NA CHLORIDE 0.9% 1,000 ML ONE (03:02)
[2021-03-03 05:10] LABS: Absolute Lymphocytes (CBC) 0.6 K/uL (0.7-4.9); Basophils % 0.9 % (0-1.3); Hematocrit 39.6 % (39.6-49.0); Lymphocytes % 20.3 % (15.3-44.8); MPV 8.5 fL (7.6-11.3); RBC Red Blood Cell Count 3.98 M/uL (4.33-5.43)
[2021-03-03 05:11] LABS: Protime INR 1.1
[2021-03-03] MEDS ORDERED: LORazepam 2 MG/ML VIAL ONE (05:12)
[2021-03-03] MEDS ORDERED: chlordiazePOXIDE HCl 25 MG CAP ONE (05:12)
[2021-03-03] MEDS: chlordiazePOXIDE HCl 25 MG CAP PO SCH (05:22)
[2021-03-03] MEDS: LORazepam 2 MG/ML VIAL IV PRN (05:22)
[2021-03-03 05:30] LABS: ALT/SGPT 69 U/L (12-78); AST/SGOT 249 U/L (15-37); Albumin 3.4 g/dL (3.4-5.0); Alkaline Phosphatase 194 U/L (45-117); BUN Blood Urea Nitrogen 2 mg/dL (7-18); Bicarbonate 27 mmol/L (21-32); Glucose Level 85 mg/dL (74-106); Magnesium 1.8 mg/dL (1.8-2.4); Phosphorus 1.3 mg/dL (2.5-4.9); Potassium 3.4 mmol/L (3.5-5.1); Protein, Total 6.7 g/dL (6.4-8.2); Sodium Level 140 mmol/L (136-145)
[2021-03-03 05:39] LABS: Bilirubin Total 6.8 mg/dL (0.2-1.0)
--- NOTE | 2021-03-03 06:28 | P.PN ---
Subjective Date of Service: 03/03/21 Primary Care Provider: None Chief Complaint: Alcohol withdrawal, seizure Subjective: Improving (Patient improved. Patient alert and cooperative. No significant dizziness, headaches or abnormality.) Physical Examination - Vital Signs Temperature: 98.2 F Blood Pressure: 91/60 Pulse: 104 Respirations: 39 Pulse Ox (%): 100 Assessment & Plan Discharge Plan: Home Plan to discharge in: 24 Hours Physician Review Additional Text: COVID: negative CT Head/neck: COMPARISON: No relevant prior studies available. FINDINGS: BRAIN: Unremarkable. No hemorrhage. No significant white matter disease. No edema. VENTRICLES: Unremarkable. No ventriculomegaly. SKULL: No acute fracture. SINUSES: Unremarkable as visualized. No acute sinusitis. MASTOID AIR CELLS: Unremarkable as visualized. No mastoid effusion. VERTEBRAE: The vertebral body heights and alignment are maintained. No acute fracture. DISCS/SPINAL CANAL/NEURAL FORAMINA: The intervertebral disc spaces are maintained. No spinal canal stenosis. SOFT TISSUES: Right periorbital soft tissue swelling is present. LUNG APICES: Unremarkable as visualized. IMPRESSION: 1. No acute intracranial findings. 2. No fracture or malalignment of the cervical spine. CT facial: COMPARISON: No relevant prior studies available. FINDINGS: BONES/JOINTS: The orbital floors and blanco are intact. Suggestion of a chronic right orbital floor fracture is present. The zygomatic arches and pterygoid plates are intact. The nasal bones are intact. Suggestion of a chronic right nasal bone fracture is also present. The visualized maxilla and mandible are intact. SOFT TISSUES: Right cheek and periorbital soft tissue swelling is present. ORBITS: The globes, extraocular muscles, and optic nerve complexes are within normal limits. SINUSES: The visualized paranasal sinuses are clear. No air-fluid levels. IMPRESSION: No acute facial fracture. Right periorbital and facial soft tissue swelling. CT Ab/pelvis: COMPARISON: No relevant prior studies available. FINDINGS: LUNG BASES: Unremarkable. No mass. No consolidation. ABDOMEN: LIVER: The liver is enlarged and diffusely fatty. GALLBLADDER AND BILE DUCTS: The gallbladder is physiologically distended. PANCREAS: No ductal dilation. No mass. SPLEEN: Unremarkable. ADRENALS: Unremarkable. No mass. KIDNEYS AND URETERS: Unremarkable. The kidneys enhance symmetrically. No obstructing renal or ureteral calculus is seen. No hydronephrosis or hydroureter. No perinephric fluid or stranding. STOMACH AND BOWEL: Stomach is filled with fluid and air. The small bowel is normal in caliber. Minimal stool is present throughout colon. There is no mucosal thickening or evidence of bowel obstruction. PELVIS: APPENDIX: The appendix is surgically absent. BLADDER: The bladder is moderately distended. REPRODUCTIVE: Unremarkable as visualized. ABDOMEN and PELVIS: INTRAPERITONEAL SPACE: Unremarkable. No free air. No significant fluid collection. BONES/JOINTS: Several healed left anterior rib fractures are present. There is no acute fracture visualized axial and appendicular skeleton. Schmorl's nodes at the superior endplate of T6-T9 are present. Height loss at these levels is noted. Postsurgical change with spinal rods and pedicle screws from T11 through L3 is present bridging a chronic fracture of L1. Retropulsion with height loss at L1 is noted along with canal narrowing. SOFT TISSUES: The soft tissues are normal. VASCULATURE: Several calcified phleboliths are present within the pelvis. No abdominal aortic aneurysm. LYMPH NODES: Unremarkable. No enlarged lymph nodes. OTHER FINDINGS: Surgical clips are present within the right lower quadrant. IMPRESSION: 1. No acute findings on this contrasted CT of the abdomen and pelvis to explain the patient's symptoms. 2. Chronic findings specifically of the vertebral bodies as described. Correlation with prior imaging is recommended. Liver ultrasound: COMPARISON: Abdomen Pelvis W Contrast dated 03/01/2021 FINDINGS: The liver demonstrates diffuse fatty infiltration.No focal liver lesion or intrahepatic biliary dilatation.No evidence of portal vein thrombosis. No biliary ductal dilatation. There is sludge within the gallbladder. No gallbladder wall thickening. No pericholecystic fluid. Visualized portions of the pancreas unremarkable. The common bile duct measures 4 millimeters. IMPRESSION: Hepatic steatosis. Negative for cholelithiasis, acute cholecystitis, or biliary ductal dilatation. Physical exam: General: Alert, cooperative. Oriented x3 HEENT: Neck supple Respiratory: Clear to auscultation bilaterally, Normal air movement Cardiovascular: Regular rate/rhythm, Normal S1 S2 Gastrointestinal: Normal bowel sounds, No tenderness Musculoskeletal: No tenderness Integumentary: No rashes Neurological: Normal gait, Normal speech, Normal strength at 5/5 x4 extr, Normal tone, Normal affect Lymphatics: No axilla or inguinal lymphadenopathy Impression: Seizure likely secondary to alcohol withdrawal with severe alcohol abuse Elevated liver function with hyperbilirubinemia secondary to alcohol abuse and fatty liver Acute renal injury likely dehydration related to alcohol abuse GERD Fall with ecchymosis to the right side of the face Conjunctivitis Alcohol abuse Plan: Seizure likely secondary to alcohol withdrawal with severe alcohol abuse: Patient doing well at this time. Patient tolerating diet. Patient desires to go home. Alcohol cessation addressed in detail. Patient plans to quit. He also plans to continue alcohol at home. I have explained to him in detail that the patient needs to wean off alcohol over several weeks. Patient has some benzodiazepineKlonopin at home. He may use this as needed. Once he is off alcohol recommend Alcoholics Anonymous. This was discussed in detail with the patient and . We will have patient ambulate this morning. Reassess after breakfast. If stable will plan for discharge home. Elevated liver function with hyperbilirubinemia secondary to alcohol abuse and fatty liver: LFTs improved. Liver ultrasound shows fatty liver. No significant biliary ductal dilatation or acute cholecystitis. CT scan showed no significant abnormality. Will recommend follow-up with GI as an outpatient to further address hepatitis panel pending. Recommend follow-up with PCP or GI to further address. Acute renal injury likely dehydration related to alcohol abuse: Patient well- hydrated at this time. Renal function back to baseline GERD: Continue with Pepcid 20 mg 1 pill twice daily at home Fall with ecchymosis to the right side of the face: CT scan revealed no acute facial fracture. Ecchymosis noted from fall. Conjunctivitis: Continue with eyedrops. Alcohol abuse: Plan for discharge with patient weaning off alcohol at home. DVT PPX: Lovenox Code status: Full code Discharge Plan: Home at discharge Time Spent Managing Pts Care (In Minutes): 55
[2021-03-03] MEDS: ENOXAPARIN 40 MG/0.4 ML SQ SCH (09:00)
[2021-03-03] MEDS: MOXIFLOXACIN HCL 0.5% 3ML OPTH OPTH SCH (09:00)
[2021-03-03] MEDS: FAMOTIDINE 20 MG TAB PO SCH (09:00)
[2021-03-03] MEDS ORDERED: FAMOTIDINE 20 MG TAB ONE (09:21)
[2021-03-03] MEDS ORDERED: ENOXAPARIN 40 MG/0.4 ML SQ ONE (09:27)
[2021-03-03 09:28] VITALS: BP 91/60; TEMP 98.2
--- NOTE | 2021-03-03 09:33 | P.DS ---
Admission Date: 03/02/21 Discharge Date: 03/03/21 Primary Care Provider: None Disposition: ROUTINE DISCHARGE Discharge Condition: GOOD Reason for Admission: Alcohol withdrawal, seizure Consultations: none Procedures: COVID: negative CT Head/neck: COMPARISON: No relevant prior studies available. FINDINGS: BRAIN: Unremarkable. No hemorrhage. No significant white matter disease. No edema. VENTRICLES: Unremarkable. No ventriculomegaly. SKULL: No acute fracture. SINUSES: Unremarkable as visualized. No acute sinusitis. MASTOID AIR CELLS: Unremarkable as visualized. No mastoid effusion. VERTEBRAE: The vertebral body heights and alignment are maintained. No acute fracture. DISCS/SPINAL CANAL/NEURAL FORAMINA: The intervertebral disc spaces are maintained. No spinal canal stenosis. SOFT TISSUES: Right periorbital soft tissue swelling is present. LUNG APICES: Unremarkable as visualized. IMPRESSION: 1. No acute intracranial findings. 2. No fracture or malalignment of the cervical spine. CT facial: COMPARISON: No relevant prior studies available. FINDINGS: BONES/JOINTS: The orbital floors and blanco are intact. Suggestion of a chronic right orbital floor fracture is present. The zygomatic arches and pterygoid plates are intact. The nasal bones are intact. Suggestion of a chronic right nasal bone fracture is also present. The visualized maxilla and mandible are intact. SOFT TISSUES: Right cheek and periorbital soft tissue swelling is present. ORBITS: The globes, extraocular muscles, and optic nerve complexes are within normal limits. SINUSES: The visualized paranasal sinuses are clear. No air-fluid levels. IMPRESSION: No acute facial fracture. Right periorbital and facial soft tissue swelling. CT Ab/pelvis: COMPARISON: No relevant prior studies available. FINDINGS: LUNG BASES: Unremarkable. No mass. No consolidation. ABDOMEN: LIVER: The liver is enlarged and diffusely fatty. GALLBLADDER AND BILE DUCTS: The gallbladder is physiologically distended. PANCREAS: No ductal dilation. No mass. SPLEEN: Unremarkable. ADRENALS: Unremarkable. No mass. KIDNEYS AND URETERS: Unremarkable. The kidneys enhance symmetrically. No obstructing renal or ureteral calculus is seen. No hydronephrosis or hydroureter. No perinephric fluid or stranding. STOMACH AND BOWEL: Stomach is filled with fluid and air. The small bowel is normal in caliber. Minimal stool is present throughout colon. There is no mucosal thickening or evidence of bowel obstruction. PELVIS: APPENDIX: The appendix is surgically absent. BLADDER: The bladder is moderately distended. REPRODUCTIVE: Unremarkable as visualized. ABDOMEN and PELVIS: INTRAPERITONEAL SPACE: Unremarkable. No free air. No significant fluid collection. BONES/JOINTS: Several healed left anterior rib fractures are present. There is no acute fracture visualized axial and appendicular skeleton. Schmorl's nodes at the superior endplate of T6-T9 are present. Height loss at these levels is n oted. Postsurgical change with spinal rods and pedicle screws from T11 through L3 is present bridging a chronic fracture of L1. Retropulsion with height loss at L1 is noted along with canal narrowing. SOFT TISSUES: The soft tissues are normal. VASCULATURE: Several calcified phleboliths are present within the pelvis. No abdominal aortic aneurysm. LYMPH NODES: Unremarkable. No enlarged lymph nodes. OTHER FINDINGS: Surgical clips are present within the right lower quadrant. IMPRESSION: 1. No acute findings on this contrasted CT of the abdomen and pelvis to explain the patient's symptoms. 2. Chronic findings specifically of the vertebral bodies as described. Correlation with prior imaging is recommended. Liver ultrasound: COMPARISON: Abdomen Pelvis W Contrast dated 03/01/2021 FINDINGS: The liver demonstrates diffuse fatty infiltration.No focal liver lesion or intrahepatic biliary dilatation.No evidence of portal vein thrombosis. No biliary ductal dilatation. There is sludge within the gallbladder. No gallbladder wall thickening. No pericholecystic fluid. Visualized portions of the pancreas unremarkable. The common bile duct measures 4 millimeters. IMPRESSION: Hepatic steatosis. Negative for cholelithiasis, acute cholecystitis, or biliary ductal dilatation. Medical problem list: Seizure likely secondary to alcohol withdrawal with severe alcohol abuse Elevated liver function with hyperbilirubinemia secondary to alcohol abuse and fatty liver Acute renal injury likely dehydration related to alcohol abuse GERD Fall with ecchymosis to the right side of the face Conjunctivitis Alcohol abuse History of injury to the back requiring surgery Brief History of Present Illness: 35-year-old male with history of alcohol abuse/fatty liver presents emergency department for possible seizure. Patient reports that he drinks approximately 1 L of Bacardi rum per day but has cut down to about half a liter over the course of the last 2 days. Patient reports that he was in his recliner at home alone and awoke with blood coming out of his mouth after biting his tongue apparently. Patient reports he has had seizure in the past with alcohol withdrawal as well as multiple hospitalizations for similar. Patient was evaluated in the emergency department noted to be tachycardic, hypertensive, tremulous and developed low-grade temperature while in the emergency department. Patient reports last drink was around 1700 on 03/01/2021. Patient had elevated LFTs. Alcohol level less than 10. Patient with fall on 02/28/2021 resulting in ecchymosis to the right orbital area. CT scan of the head, neck and facial bones shows no acute findings at this time. Patient admitted for further evaluation and treatment. Hospital Course: Patient presented with seizure secondary to alcohol withdrawal with severe alc ohol abuse. Patient drinks excessively. Patient patient was trying to wean off his alcohol. Patient suffered a fall. Ecchymosis to the right facial region noted. CT scan revealed no acute facial fracture. Patient was admitted for alcohol withdrawal. Patient received IV fluids, IV banana bag, and Librium. Patient has done well. Patient desires to go home. Patient plans to continue with alcohol but eventually wean off alcohol. Case discussed at length with patient and . Plan of care also discussed. Patient has some benzodiazepine medicationKlonopin at home to be used as needed. If the patient continues to drink excessively long-term this may cause permanent damage to the liver and other neurological dysfunction. This was addressed in detail with the patient and . At discharge patient appropriate and ambulating well. Patient appropriate in his mental status. At discharge the patient will continue at home. Patient will continue with alcohol and per his plan. Recommend to wean off alcohol slowly over several weeks. Patient may use his Klonopin as needed for agitation. Fall precautions in place. Alcohol cessation, alcohol abuse education, alcohol withdrawal education provided. Recommend to establish care with a PCP in [facility] to continue his care. A list of PCPs in the area will be provided. Recommend to continue folic acid 1 mg daily and thiamine 100 mg daily. Patient with elevated liver function and hyperbilirubinemia likely from alcohol abuse and fatty liver. CT scan and liver ultrasound shows fatty liver. No other acute abnormality noted. No significant biliary ductal dilatation or acute cholecystitis identified. Hepatitis panel and HIV panel obtained. This can be followed up with his PCP. Recommend to establish care with GI to further evaluate and address as an outpatient. Patient came in with acute renal injury likely from dehydration. Patient back to baseline. Patient better hydrated. Patient tolerating his diet. Patient likely with GERD. At discharge patient will continue with Pepcid 20 mg 1 pill twice daily. Patient with conjunctivitis. Patient will continue with eyedrops as directed. Patient with recent fall with ecchymosis to the right side of the face. CT scan shows no acute facial fracture. Fall precautions in place. Patient with history of back surgery related to fall. Overall stable. No need for pain medication at this time. Vital Signs/Physical Exam: Temp Pulse Resp BP Pulse Ox 98.2 F 104 H 39 H 91/60 100 03/03/21 09:29 03/03/21 09:29 03/03/21 09:29 03/03/21 09:29 03/03/21 09:29 General: Alert, In no apparent distress, Oriented x3, Cooperative HEENT: Atraumatic Neck: Supple Respiratory: Clear to auscultation bilaterally, Normal air movement Cardiovascular: Normal pulses, Regular rate/rhythm Gastrointestinal: Normal bowel sounds, No tenderness, No masses, No rebound, No guarding Musculoskeletal: No erythema, No tenderness, No warmth Integumentary: Other (Ecchymosis to the right facial region.) Neurological: Normal speech, Normal strength at 5/5 x4 extr, Normal tone, Normal affect, Other (No tremors noted) Laboratory Data at Discharge: WBC 3.10 K/uL (4.3-10.9) L D 03/03/21 04:43 Hgb 13.7 g/dL (13.6-17.9) 03/03/21 04:43 Hct 39.6 % (39.6-49.0) 03/03/21 04:43 Plt Count 126 K/uL (152-406) L D 03/03/21 04:43 PT 12.7 SECONDS (9.5-12.5) H 03/03/21 04:43 INR 1.10 03/03/21 04:43 APTT 27.5 SECONDS (24.3-36.9) 03/01/21 22:48 Sodium 140 mmol/L (136-145) 03/03/21 04:43 Potassium 3.4 mmol/L (3.5-5.1) L 03/03/21 04:43 BUN 2 mg/dL (7-18) L 03/03/21 04:43 Creatinine 0.74 mg/dL (0.55-1.3) 03/03/21 04:43 Glucose 85 mg/dL (74-106) 03/03/21 04:43 Phosphorus 1.3 mg/dL (2.5-4.9) L D 03/03/21 04:43 Magnesium 1.8 mg/dL (1.8-2.4) 03/03/21 04:43 Total Bilirubin 6.8 mg/dL (0.2-1.0) H* 03/03/21 04:43 AST 249 U/L (15-37) H D 03/03/21 04:43 ALT 69 U/L (12-78) 03/03/21 04:43 Alkaline Phosphatase 194 U/L (45-117) H 03/03/21 04:43 Triglycerides 108 mg/dL (<150) 03/02/21 04:24 Cholesterol 309 mg/dL (<200) H 03/02/21 04:24 HDL Cholesterol 54 mg/dL (40-60) 03/02/21 04:24 Cholesterol/HDL Ratio 5.72 03/02/21 04:24 Lipase 144 U/L (73-393) 03/01/21 22:48 Home Medications: Famotidine [Pepcid*] 20 mg PO BID #60 tab 03/03/21 Folic Acid 1 mg PO DAILY #90 tablet 03/03/21 Moxifloxacin HCl [Vigamox 0.5%*] 1 drops OPTH BID #1 btl 03/03/21 Thiamine HCl 100 mg PO DAILY #90 tablet 03/03/21 New Medications: Folic Acid 1 mg PO DAILY #90 tablet Famotidine [Pepcid*] 20 mg PO BID #60 tab Thiamine HCl 100 mg PO DAILY #90 tablet Moxifloxacin HCl [Vigamox 0.5%*] 1 drops OPTH BID #1 btl Physician Discharge Instructions: Patient presented with seizure secondary to alcohol withdrawal with severe alcohol abuse. Patient drinks excessively. Patient patient was trying to wean off his alcohol. Patient suffered a fall. Ecchymosis to the right facial region noted. CT scan revealed no acute facial fracture. Patient was admitted for alcohol withdrawal. Patient received IV fluids, IV banana bag, and Librium. Patient has done well. Patient desires to go home. Patient plans to continue with alcohol but eventually wean off alcohol. Case discussed at length with patient and . Plan of care also discussed. Patient has some benzodiazepine medicationKlonopin at home to be used as needed. If the patient continues to drink excessively long-term this may cause permanent damage to the liver and other neurological dysfunction. This was addressed in detail with the patient and . At discharge patient appropriate and ambulating well. Patient appropriate in his mental status. At discharge the patient will continue at home. Patient will continue with alcohol and per his plan. Recommend to wean off alcohol slowly over several weeks. Patient may use his Klonopin as needed for agitation. Fall precautions in place. Alcohol cessation, alcohol abuse education, alcohol withdrawal education provided. Recommend to establish care with a PCP in [facility] to continue his care. A list of PCPs in the area will be provided. Recommend to continue folic acid 1 mg daily and thiamine 100 mg daily. Patient with elevated liver function and hyperbilirubinemia likely from alcohol abuse and fatty liver. CT scan and liver ultrasound shows fatty liver. No other acute abnormality noted. No significant biliary ductal dilatation or acute cholecystitis identified. Hepatitis panel and HIV panel obtained. This can be followed up with his PCP. Recommend to establish care with GI to further evaluate and address as an outpatient. Patient came in with acute renal injury likely from dehydration. Patient back to baseline. Patient better hydrated. Patient tolerating his diet. Patient likely with GERD. At discharge patient will continue with Pepcid 20 mg 1 pill twice daily. Patient with conjunctivitis. Patient will continue with eyedrops as directed for 1 week. Patient with recent fall with ecchymosis to the right side of the face. CT scan shows no acute facial fracture. Fall precautions in place. Patient with history of back surgery related to fall. Overall stable. No need for pain medication at this time. Diet: Regular Activity: Fall precautions Followup: NONE,NONE [Primary Care Provider] - Time spent managing pt's care (in minutes): 55
[2021-03-03] MEDS ORDERED: POTASSIUM CL SA 10 MEQ TAB PO ONE (09:48)
[2021-03-05 14:45] LABS: HIV AG/AB 4TH GEN Non-reactive (Non-reactive)
[2021-03-06 18:22] LABS: HBsAG Nonreactive (Nonreactive)
== END 2021-03-03 11:00 | disposition home or self-care (01) | DRG 101 ==
LOC: ER 22:01 → ERHOLD 03-02 01:54
PROVIDERS: ADMIT Family Medicine; ATTEND Family Medicine
DX: R56.9 Unspecified convulsions (principal); N17.9 Acute kidney failure, unspecified; F10.139 Alcohol abuse with withdrawal, unspecified; H10.9 Unspecified conjunctivitis; K21.9 Gastro-esophageal reflux disease without esophagitis; R00.0 Tachycardia, unspecified; I10 Essential (primary) hypertension; K70.0 Alcoholic fatty liver; S00.83XA Contusion of other part of head, initial encounter; W19.XXXA Unspecified fall, initial encounter
CPT/HCPCS: 36415; 70450; 70486; 71045; 72125; 74177; 76377; 76705; 80048; 80053; 80061; 80074; 80076; 80307; 80320; 80329; 81003; 82550; 83690; 83735; 84100; 84439; 84443; 84484; 85025; 85610; 85730; 87389; 93005; 94010; 96374; 96375; 97161; 99284; J1650; J2405; J3411; J3475; J3480; J7030; Q9967; U0003